=== PATIENT | male | born 1945 | race Two or more races ===

== ENCOUNTER → 2024-07-24 | Outpatient (CLI) | payer MEDICARE, MEDICAID, SELFPAY ==
--- NOTE | 2024-07-24 14:57 | XR_ITS ---
Examination: PA lateral chest 2 views TECHNIQUE: Upright PA lateral chest 2 views Exam date and time: July 24, 2024 1504 hours INDICATIONS: History fluid in the lungs 20 days ago #breath. FINDINGS: Normal heart size Scarring versus pneumonia in the right middle lobe Accentuation basilar bronchovascular markings No nasim pulmonary edema Moderate osteopenia IMPRESSION: Scarring versus pneumonia in the right middle lobe Basilar pulmonary fibrosis versus bronchitis, clinical correlation advised
== END | disposition home or self-care (01) ==
PROVIDERS: PCP Physician Assistant; Referring Provider Physician Assistant; Visit Provider Physician Assistant
DX: R91.8 Other nonspecific abnormal finding of lung field (principal)
CPT/HCPCS: 71046